=== PATIENT | male | born 1930 | race Caucasian/White ===

== ENCOUNTER → 2017-11-28 | Day surgery (SDC) | payer OTHER, MEDICARE ==
[~2017-11-28] VITALS: Ht 182.9 cm; Wt 78.5 kg
--- NOTE | 2017-11-28 14:24 | Operative Report ---
Operative/Inv Procedure Report Surgery Date: 11/28/17 Name of Procedure: Laparoscopic right inguinal hernia repair Pre-Operative Diagnosis: Right inguinal hernia Post-Operative Diagnosis: Same Estimated Blood Loss: scant Surgeon/Saw Edge Fuser Circular: Bartolo OSUNA,Jordy Spicer/Flakito SANCHEZ Anesthesia: general endotracheal tube Implants: Parietex mesh Operative/Procedure Note Note: After consent patient is brought to the operating room laid supine. General anesthesia was obtained and the abdomen was prepped and draped. Skin was anesthetized with local anesthesia and a transverse infraumbilical incision made sharply. We identified the rectus fascia and incised transversely. Stay sutures were placed. Rectus muscle was retracted laterally and a dissecting balloon placed posterior to it. It was inflated under direct vision the camera and replaced with a blunt Olivo port. Gas was instilled. 2, 5 mm ports were placed in the infraumbilical midline after local anesthesia was instilled and under direct vision and camera. Began our dissection at the pubis and delineated the symphysis. Don's ligament was identified and cleared. There is a large direct defect which was delivered and reflected inferiorly. Most the contents were that of fatty tissue. Then dissected laterally and developed the iliopubic tract. The cord structures were circumferentially dissected. There is also a large indirect hernia defect, more lateral than usually seen. It was mostly fatty containing and delivered and reflected medially. Once the dissection was completed a right-sided piece of Parietex mesh was placed in the cavity. It was placed around the cord structures re-create the internal ring and cover the femoral and direct spaces as well. Gas was allowed to escape on maintaining proper orientation of the mesh. The fascia was closed with 0 Vicryl suture. Skin incisions closed with 4-0 Vicryl. Steri-Strips and sterile dressing applied. Sponge and needle counts are correct. Findings: Pantaloon hernia CC: Mauricio OSUNA,Jorje Romero
== END ==
LOC: STS 04:55
DX: K40.90 Unilateral inguinal hernia, without obstruction or gangrene, not specified as recurrent (principal); I10 Essential (primary) hypertension; I48.91 Unspecified atrial fibrillation; Z79.01 Long term (current) use of anticoagulants; I25.10 Atherosclerotic heart disease of native coronary artery without angina pectoris
CPT/HCPCS: C1781; C9399; J0131; J0690; J2250